=== PATIENT | male | born 1955 | race Caucasian/White ===

== ENCOUNTER 2023-04-29 05:20 | Emergency (ER) | payer OTHER ==
--- OUTSIDE RECORDS SUMMARY | 2023-04-29 05:23 | XMS REPORT | Continuity of Care Document ---
:1955 Author Organization [facility] t Address [address] [facility] [address] [place] [id number] Care Team Providers Name Role Phone Lab, [facility] Fam Pob I Attending Clinician Unavailable Katherine Morales Attending Clinician KATHERINE CLEMENTS Attending Clinician Unavailable Doctor Unassigned, [place] Attending Clinician Unavailable Payers Payer Name Policy Type Policy Number Effective Date Expiration Date S ource Problems This patient has no known problems. Allergies, Adverse Reactions, Alerts Allergy Allergy Status Severity Reaction(s) Onset Inactive Treating Comm ents Source Name Type Date Date Clinician NO KNOWN Drug Active Univers ALLERGIE Class ity of [facility] Social History Social Habit Start Date Stop Date Quantity Comments Source Sex Assigned At Uni versity [facility] Smoking Status Start Date Stop Date Source Unknown if ever [facility] Medications This patient has no known medications. Procedures This patient has no known procedures. Encounters Start End Encounter Admission Attending Care Care Encounter Source Date/Time Date/Time Type Type Clinicians Facility Department ID 2020-03-02 2020-03-02 Laboratory Lab, [facility] [id number] 13:53:26 14:13:26 Only Fam Pob I Health [id number] [place] [id number] Rajesh [id number] nal [address] 2020-03-02 2020-03-02 Laboratory Lab, [facility] Fam [place] [id number]. [id number] [facility] 13:53:26 14:13:26 Only Katherine [facility] [id number] ity [place] [id number] Walter as Professio [phone] Co dical nal [address] 2020-03-02 2020-03-02 Outpatient R CATHERINE [facility] [id number] Univers 14:00:00 14:00:00 KATHERINE ity of [facility] 2020-03-02 2020-03-02 Letter Doctor DEBRA [id number] Univers 00:00:00 00:00:00 (Out) Unassigned, MARÍA [id number] ity of [place] [facility] [id number] Walter as [phone] [address] 2020-03-02 2020-03-02 Letter Doctor DEBRA [id number] 00:00:00 00:00:00 (Out) Unassigned, MARÍA [id number] [place] [facility] [id number] Results This patient has no known results.
[2023-04-29 05:57] LABS: Absolute Lymphocytes (CBC) 1.8 K/uL (0.7-4.9); Lymphocytes % 15.3 % (15.3-44.8); MCV 91.8 fL (80-100); MPV 8.5 fL (7.6-11.3); Platelets 234 thou/uL (152-406); RBC Red Blood Cell Count 4.69 M/uL (4.33-5.43)
[2023-04-29] MEDS ORDERED: ONDANSETRON 4 MG/2 ML VIAL ONE ×2 (06:13→09:52)
[2023-04-29] MEDS ORDERED: MORPHINE 4 MG/ML SYR ONE (06:13)
[2023-04-29 06:14] LABS: Albumin 3.5 g/dL (3.4-5.0); Bilirubin Total 1.2 mg/dL (0.2-1.0); Potassium 3.8 mEq/L (3.5-5.1)
[2023-04-29] MEDS ORDERED: NA CHLORIDE 0.9% 1,000 ML ONE (07:53)
[2023-04-29] MEDS ORDERED: MORPHINE 2 MG/ML SYR ONE ×2 (08:28→09:17)
[2023-04-29] MEDS ORDERED: MAGNESIUM SULFATE 1 gm IVPB 1 GM/100 ML BAG IV ONE (09:17)
[2023-04-29 09:27] LABS: Specific Gravity 1.029 (1.005-1.030); Urine Bacteria <20 /HPF (<20); Urine Bilirubin NEGATIVE (Negative); Urine Blood 3+ (OVER) (Negative); Urine Clarity Extremely Turbid (Clear); Urine Color Dark-Brown (Yellow); Urine Glucose NEGATIVE (Negative); Urine Mucus 2+ /HPF (None Seen); Urine Protein 2+ (Negative); Urine RBC >50 /HPF (None Seen); Urine Urobilinogen Normal (Normal); Urine pH 5.5 (5.0-7.0)
[2023-04-29] MEDS ORDERED: NA CHLORIDE 0.9% 500 ML ONE (09:52)
[2023-04-29] MEDS ORDERED: FENTANYL CITR 100 MCG/2 ML ONE (10:51)
--- NOTE | 2023-04-29 11:10 | ER ---
Nurse's Notes [facility] Name: Devan Mclaughlin Age: 68 yrs Sex: Male : 1955 Arrival Date: 04/29/2023 Time: 05:20 Bed 6 Private MD: Diagnosis: Calculus of ureter Presentation: 04/29 05:40 Chief complaint: Patient states: right flank plan that started at 2 am. pt has hx of as6 kidney stones. Coronavirus screen: At this time, the client does not indicate any symptoms associated with coronavirus-19. Ebola Screen: No symptoms or risks identified at this time. Initial Sepsis Screen: Does the patient meet any 2 criteria? No. Patient's initial sepsis screen is negative. Does the patient have a suspected source of infection? No. Patient's initial sepsis screen is negative. Risk Assessment: Do you want to hurt yourself or someone else? Patient reports no desire to harm self or others. Onset of symptoms was April 29, 2023 at 02:00. 05:40 Acuity: RICHARD 3 as6 05:40 Method Of Arrival: Wheelchair as6 Historical: - Allergies: 05:40 Dilaudid; as6 - PMHx: 05:40 Atrial fibrillation; as6 - PSHx: 05:40 Lithotripsy; as6 - Immunization history:: Client reports receiving the 2nd dose of the Covid vaccine, moderna. - Social history:: Smoking status: Patient denies any tobacco usage or history of. - Family history:: not pertinent. Screenin:56 [facility] ED Fall Risk Assessment (Adult) History of falling in the last 3 months, lg3 including since admission No falls in past 3 months (0 pts). Abuse screen: Denies threats or abuse. Denies injuries from another. Nutritional screening: No deficits noted. Tuberculosis screening: No symptoms or risk factors identified. Assessment: 05:56 General: Appears in no apparent distress. uncomfortable, Behavior is calm, cooperative. lg3 Pain: Complains of pain in right flank. Neuro: No deficits noted. Ortega Agitation-Sedation Scale (RASS): 0 - Alert and Calm Level of Consciousness is awake, alert, obeys commands, Oriented to person, place, time, situation. Cardiovascular: Denies chest pain, shortness of breath, Capillary refill < 3 seconds Clubbing of nail beds is absent JVD is absent Patient's skin is warm and dry. Rhythm is atrial fibrillation. Respiratory: No deficits noted. Airway is patent Respiratory effort is even, unlabored, Respiratory pattern is regular, symmetrical. GI: Abdomen is round non-distended, Abd is soft X 4 quads Abdomen is tender to palpation in right lower quadrant Reports lower abdominal pain. : Reports cramping, inability to void, pain urinary frequency. EENT: No deficits noted. No signs and/or symptoms were reported regarding the EENT system. Derm: No deficits noted. No signs and/or symptoms reported regarding the dermatologic system. Skin is intact, is healthy with good turgor, Skin is dry, Skin is normal, Skin temperature is warm. Musculoskeletal: No deficits noted. Circulation, motion, and sensation intact. Range of motion: intact in all extremities. 07:20 Reassessment: No changes from previously documented assessment. Patient and/or family ll1 updated on plan of care and expected duration. Pain level reassessed. 08:20 Reassessment: No changes from previously documented assessment. Patient and/or family ll1 updated on plan of care and expected duration. Pain level reassessed. Patient is alert, oriented x 3, equal unlabored respirations, skin warm/dry/pink. 08:56 Reassessment: No changes from previously documented assessment. Patient and/or family ll1 updated on plan of care and expected duration. Pain level reassessed. Patient is alert, oriented x 3, equal unlabored respirations, skin warm/dry/pink. 09:27 Reassessment: Patient is alert, oriented x 3, equal unlabored respirations, skin mb9 warm/dry/pink. Patient states feeling better. Patient states symptoms have improved. 09:29 Reassessment: No changes from previously documented assessment. Dr. Terry at BS. ll1 09:49 Reassessment: No changes from previously documented assessment. Patient and/or family ll1 updated on plan of care and expected duration. Pain level reassessed. Patient is alert, oriented x 3, equal unlabored respirations, skin warm/dry/pink. 10:45 Reassessment: No changes from previously documented assessment. Patient and/or family hb updated on plan of care and expected duration. Pain level reassessed. 11:04 Reassessment: No changes from previously documented assessment. Dr. Terry at BS. ll1 Vital Signs: 05:39 BP 139 / 88; Pulse 51; Resp 18 S; Temp 98.1(TE); Pulse Ox 100% on R/A; Weight 104.33 kg as6 (R); Height 6 ft. 2 in. (R); Pain 10/10; 08:19 BP 112 / 56; Pulse 63; Resp 16; Pulse Ox 99% on R/A; mb9 08:57 BP 126 / 57; Pulse 62; Pulse Ox 100% on R/A; ll1 09:56 BP 108 / 69; Pulse 70; Resp 16; Pulse Ox 97% on R/A; mb9 11:33 BP 103 / 59; Pulse 55; Resp 16; Pulse Ox 97% on R/A; Pain 5/10; ll1 05:39 Body Mass Index 29.53 (104.33 kg, 187.96 cm) as6 05:39 Pain Scale: Adult as6 11:33 Pain Scale: Adult ll1 ED Course: 05:23 Patient arrived in ED. jj6 05:39 Inserted saline lock: 20 gauge in right antecubital area, using aseptic technique. as6 Blood collected. 05:39 Arm band placed on. as6 05:40 Wayne Addison MD is Attending Physician. rt 05:43 Triage completed. as6 05:43 Payal Blood, RN is Primary Nurse. lg3 05:56 Patient maintains SpO2 saturation greater than 95% on room air. lg3 05:56 Patient has correct armband on for positive identification. Placed in gown. Bed in low lg3 position. Call light in reach. Side rails up X 1. Client placed on continuous cardiac and pulse oximetry monitoring. NIBP monitoring applied. barrel driller on. Door closed. Noise minimized. Warm blanket given. Family accompanied patient. 05:59 CBC with Diff Sent. lg3 05:59 CMP Sent. lg3 05:59 Lipase Sent. lg3 06:02 CT Stone Protocol In Process Unspecified. EDMS 08:18 Attending Physician role handed off by Wayne Addison MD rn 08:18 Keaton Terry MD is Attending Physician. rn 08:20 Primary Nurse role handed off by Payal Blood, RN ll1 08:20 Ariana Mitchell RN is Primary Nurse. ll1 08:56 Urinalysis w/ reflexes Sent. ll1 11:34 No provider procedures requiring assistance completed. IV discontinued, intact, ll1 bleeding controlled, No redness/swelling at site. Pressure dressing applied. 11:34 Provided Education on: n/a. 1 Administered Medications: 06:20 Drug: Ondansetron IVP 4 mg Route: IVP; Site: right antecubital; lg3 07:24 Follow up: Response: No adverse reaction 1 06:20 Drug: morphine IVP or IV 4 mg Route: IVP; Infused Over: 4 mins; Site: right antecubital;lg3 07:24 Follow up: Response: No adverse reaction; Pain is decreased; RASS: Alert and Calm (0) ll1 07:45 Drug: NS 0.9% IV 1000 ml Route: IV; Rate: 1 bolus; Site: right antecubital; ll1 08:50 Follow up: Response: No adverse reaction; IV Status: Completed infusion; IV Intake: ll1 1000ml 08:19 Drug: morphine IVP or IV 2 mg Route: IVP; Infused Over: 4 mins; Site: right antecubital;mb9 09:13 Follow up: Response: No adverse reaction mb9 09:07 Drug: morphine IVP or IV 2 mg Route: IVP; Infused Over: 4 mins; Site: right antecubital;mb9 09:28 Follow up: Response: No adverse reaction 9 09:13 Drug: Magnesium Sulfate IVPB 1 grams Route: IVPB; Infused Over: 1 hrs; Site: right mb9 antecubital; 10:03 Follow up: IV Status: Completed infusion; IV Intake: 100ml 1 09:49 Drug: Ondansetron IVP 4 mg Route: IVP; Site: right antecubital; ll1 10:03 Follow up: Response: No adverse reaction; Nausea is decreased; RASS: Alert and Calm (0) 1 09:49 Drug: NS 0.9% IV 500 ml Route: IV; Rate: bolus; Site: right antecubital; ll1 10:45 Follow up: Response: No adverse reaction; IV Status: Completed infusion; IV Intake: hb 500ml 10:45 Drug: fentaNYL (PF) IVP 50 mcg Route: IVP; Site: right antecubital; hb 11:33 Follow up: Response: No adverse reaction; Pain is decreased 1 11:20 Drug: traMADol PO 25 mg Route: PO; ll1 11:33 Follow up: Response: No adverse reaction ll1 Medication: 11:34 VIS not applicable for this client. ll1 Intake: 08:50 IV: 1000ml; Total: 1000ml. ll1 10:03 IV: 100ml; Total: 1100ml. ll1 10:45 IV: 500ml; Total: 1600ml. hb Outcome: 11:10 Discharge ordered by . rn 11:34 Discharged to home via wheelchair. 1 11:34 Condition: stable 11:34 Discharge instructions given to patient, family, Instructed on discharge instructions, follow up and referral plans. no drinking with medication, no driving heavy equipment, medication usage, Demonstrated understanding of instructions, follow-up care, medications, Prescriptions given X 3. 11:35 Patient left the ED. 1 Signatures: Dispatcher [employer] EDMS Keaton Terry MD MD rn Baxter, Heather RN RN Payal Blood RN RN [email or web address] Ariana Mitchell RN RN ll1 Sudha Arellano6 Sandoval Rubio RN RN as6 Obdulia Hogan RN RN mb9 Wayne Addison MD MD rt Corrections: (The following items were deleted from the chart) 05:45 05:39 BP 139 / 88; Pulse 230bpm; Resp 18bpm; Spontaneous; Pulse Ox 100% RA; Temp 98.1F as6 Temporal; 104.33 kg Reported; Height 6 ft. 2 in. Reported; BMI: 29.5; Pain 05/29, Adult; as6
--- NOTE | 2023-04-29 11:10 | EDPHYS ---
Physician Documentation [facility] Name: Devan Mclaughlin Age: 68 yrs Sex: Male : 1955 Arrival Date: 04/29/2023 Time: 05:20 Bed 6 Private MD: ED Physician Keaton Terry HPI: 04/29 06:43 This 68 yrs old Male presents to ER via Wheelchair with complaints of Possible Kidney rt Stone. 06:43 Patient presents to the ED with right flank pain radiating to the suprapubic region rt with associated hematuria. This is consistent with prior episodes of kidney stones. The patient denies other acute complaints at this time with nausea. Symptoms are moderate severity, aching nature, no other aggravating or alleviating factors.. Historical: - Allergies: 05:40 Dilaudid; as6 - PMHx: 05:40 Atrial fibrillation; as6 - PSHx: 05:40 Lithotripsy; as6 - Immunization history:: Client reports receiving the 2nd dose of the Covid vaccine, moderna. - Social history:: Smoking status: Patient denies any tobacco usage or history of. - Family history:: not pertinent. ROS: 06:43 Constitutional: Negative for fever, chills, and weight loss, Cardiovascular: Negative rt for chest pain, palpitations, and edema, Respiratory: Negative for shortness of breath, cough, wheezing, and pleuritic chest pain, MS/Extremity: Negative for injury and deformity, Skin: Negative for injury, rash, and discoloration, Neuro: Negative for headache, weakness, numbness, tingling, and seizure, Psych: Negative for depression, anxiety, suicide ideation, homicidal ideation, and hallucinations. 06:43 Back: Positive for flank pain, Negative for injury or acute deformity. 06:43 : Positive for hematuria. Exam: 06:43 Constitutional: This is a well developed, well nourished patient who is awake, alert, rt and in no acute distress. Chest/axilla: Normal chest wall appearance and motion. Nontender with no deformity. No lesions are appreciated. Cardiovascular: Regular rate and rhythm with a normal S1 and S2. No gallops, murmurs, or rubs. Normal PMI, no JVD. No pulse deficits. Respiratory: Lungs have equal breath sounds bilaterally, clear to auscultation and percussion. No rales, rhonchi or wheezes noted. No increased work of breathing, no retractions or nasal flaring. Abdomen/GI: Soft, non-tender, with normal bowel sounds. No distension or tympany. No guarding or rebound. No evidence of tenderness throughout. Skin: Warm, dry with normal turgor. Normal color with no rashes, no lesions, and no evidence of cellulitis. MS/ Extremity: Pulses equal, no cyanosis. Neurovascular intact. Full, normal range of motion. Neuro: Awake and alert, GCS 15, oriented to person, place, time, and situation. Cranial nerves II-XII grossly intact. Motor strength 5/5 in all extremities. Sensory grossly intact. Cerebellar exam normal. Normal gait. Psych: Awake, alert, with orientation to person, place and time. Behavior, mood, and affect are within normal limits. Vital Signs: 05:39 BP 139 / 88; Pulse 51; Resp 18 S; Temp 98.1(TE); Pulse Ox 100% on R/A; Weight 104.33 kg as6 (R); Height 6 ft. 2 in. (R); Pain 10/10; 08:19 BP 112 / 56; Pulse 63; Resp 16; Pulse Ox 99% on R/A; mb9 08:57 BP 126 / 57; Pulse 62; Pulse Ox 100% on R/A; ll1 09:56 BP 108 / 69; Pulse 70; Resp 16; Pulse Ox 97% on R/A; mb9 11:33 BP 103 / 59; Pulse 55; Resp 16; Pulse Ox 97% on R/A; Pain 5/10; ll1 05:39 Body Mass Index 29.53 (104.33 kg, 187.96 cm) as6 05:39 Pain Scale: Adult as6 11:33 Pain Scale: Adult ll1 MDM: 05:40 Patient medically screened. rt 08:18 ED course: Signed out to me by Dr. Adidson, pending urinalysis. Signout was that rn patient with a small kidney stone and pain is controlled, urine is pending to rule out infection. Anticipates patient will be discharged home.. 11:09 Differential Diagnosis Kidney stone, UTI. Data reviewed: vital signs, nurses notes, cath lab nurse test result(s), radiologic studies, CT scan, and as a result, I will discharge patient. Counseling: I had a detailed discussion with the patient and/or guardian regarding the historical points, exam findings, and any diagnostic results supporting the discharge/admit diagnosis, lab results, radiology results, the need for outpatient follow up, to return to the emergency department if symptoms worsen or persist or if there are any questions or concerns that arise at home. Response to treatment: the patient's symptoms have markedly improved after treatment, and as a result, I will discharge patient. 11:09 Special discussion: I discussed with the patient/guardian in detail that at this point rn there is no indication for admission to the hospital. It is understood, however, that if the symptoms persist or worsen the patient needs to return immediately for re-evaluation. Based on the history and exam findings, there is no indication for further emergent testing or inpatient evaluation. I discussed with the patient/guardian the need to see the primary care provider for further evaluation of the symptoms. I discussed with the patient/guardian the need to see the urologist for further evaluation of the symptoms. 04/29 05:48 Order name: CBC with Diff; Complete Time: 06:17 3 04/29 05:48 Order name: CMP; Complete Time: 06:17 3 04/29 05:48 Order name: Lipase; Complete Time: 06:17 3 04/29 05:48 Order name: Urinalysis w/ reflexes; Complete Time: 09:27 3 04/29 05:43 Order name: CT Stone Protocol 3 04/29 05:48 Order name: IV Saline Lock; Complete Time: 05:59 3 04/29 05:48 Order name: Labs collected and sent; Complete Time: 05:59 lg3 Administered Medications: 06:20 Drug: Ondansetron IVP 4 mg Route: IVP; Site: right antecubital; lg3 07:24 Follow up: Response: No adverse reaction ll1 06:20 Drug: morphine IVP or IV 4 mg Route: IVP; Infused Over: 4 mins; Site: right antecubital;lg3 07:24 Follow up: Response: No adverse reaction; Pain is decreased; RASS: Alert and Calm (0) ll1 07:45 Drug: NS 0.9% IV 1000 ml Route: IV; Rate: 1 bolus; Site: right antecubital; ll1 08:50 Follow up: Response: No adverse reaction; IV Status: Completed infusion; IV Intake: ll1 1000ml 08:19 Drug: morphine IVP or IV 2 mg Route: IVP; Infused Over: 4 mins; Site: right antecubital;mb9 09:13 Follow up: Response: No adverse reaction mb9 09:07 Drug: morphine IVP or IV 2 mg Route: IVP; Infused Over: 4 mins; Site: right antecubital;mb9 09:28 Follow up: Response: No adverse reaction mb9 09:13 Drug: Magnesium Sulfate IVPB 1 grams Route: IVPB; Infused Over: 1 hrs; Site: right mb9 antecubital; 10:03 Follow up: IV Status: Completed infusion; IV Intake: 100ml ll1 09:49 Drug: Ondansetron IVP 4 mg Route: IVP; Site: right antecubital; ll1 10:03 Follow up: Response: No adverse reaction; Nausea is decreased; RASS: Alert and Calm (0) ll1 09:49 Drug: NS 0.9% IV 500 ml Route: IV; Rate: bolus; Site: right antecubital; ll1 10:45 Follow up: Response: No adverse reaction; IV Status: Completed infusion; IV Intake: hb 500ml 10:45 Drug: fentaNYL (PF) IVP 50 mcg Route: IVP; Site: right antecubital; hb 11:33 Follow up: Response: No adverse reaction; Pain is decreased ll1 11:20 Drug: traMADol PO 25 mg Route: PO; ll1 11:33 Follow up: Response: No adverse reaction ll1 Disposition Summary: 04/29/23 11:10 Discharge Ordered Location: Home rn Problem: new rn Symptoms: have improved rn Condition: Stable rn Diagnosis - Calculus of ureter rn Followup: rn - With: Private Physician - When: As needed - Reason: Recheck today's complaints, Re-evaluation by your physician Discharge Instructions: - Discharge Summary Sheet rn - Kidney Stones rn - Renal Colic rn - Dietary Guidelines to Help Prevent Kidney Stones rn Forms: - Medication Reconciliation Form rn - Thank You Letter rn - Antibiotic erisa attorney - Prescription Opioid Use rn - Patient Portal Instructions rn - Leadership Thank You Letter rn Prescriptions: - Flomax 0.4 mg Oral capsule - take 1 capsule by ORAL route daily As needed; 5 capsule; Refills: 0, Product rn Selection Permitted - ondansetron 4 mg Oral Tablet,disintegrating - take 1 tablet by ORAL route every 8 hours As needed; 12 tablet; Refills: 0, rn Product Selection Permitted - Tramadol 50 mg Oral Tablet - take 1 tablet by ORAL route every 8 hours as needed; 12 tablet; Refills: 0, rn Product Selection Permitted Signatures: Dispatcher [employer] EDKeaton Juan MD MD rn Baxter, Heather RN RN Payal Blood RN RN lg3 Ariana Mitchell RN RN ll1 Sandoval Rubio RN RN as6 Obdulia Hogan RN RN mb9 Wayne Addison MD MD rt
[2023-04-29] MEDS ORDERED: TRAMADOL HCL 50 MG TAB ONE (11:29)
[2023-04-29 11:50] VITALS: TEMP 98.1
[2023-04-29 12:03] VITALS: O2SAT 97
[2023-04-29 12:04] VITALS: BP 103/59
--- NOTE | 2023-04-30 10:09 | RAD REPORT ---
EXAM DESCRIPTION: CT - Stone Protocol - 04/29/2023 6:54 am CLINICAL HISTORY: The patient is 68 years old and is Male; FLANK PAIN TECHNIQUE: Axial computed tomography images of the abdomen and pelvis without intravenous contrast. Sagittal and coronal reformatted images were created and reviewed. This CT exam was performed usi ng one or more of the following dose reduction techniques: automated exposure control, adjustment o f the mA and/or kV according to patient size, and/or use of iterative reconstruction technique. COMPARISON: No relevant prior studies available. FINDINGS: Lung bases: Unremarkable. No mass. No consolidation. ABDOMEN: Liver: Unremarkable. Gallbladder and bile ducts: Unremarkable. No calcified stones. No ductal dilation. Pancreas: Unremarkable. No ductal dilation. Spleen: Unremarkable. No splenomegaly. Adrenals: Unremarkable. No mass. Kidneys and ureters: 3 mm stone in the upper right ureter. Mild right hydroureteronephrosis and p erinephric/periureteral stranding. Nonobstructing calcification in the kidneys. Stomach and bowel: Colonic diverticulosis. No obstruction. No mucosal thickening. PELVIS: Appendix: The appendix is normal. Bladder: Unremarkable. Reproductive: Calcification in the prostate. ABDOMEN and PELVIS: Intraperitoneal space: Unremarkable. No free air. No significant fluid collection. Bones/joints: No acute fracture. No dislocation. Soft tissues: Unremarkable. Vasculature: Unremarkable. No abdominal aortic aneurysm. Lymph nodes: Unremarkable. No enlarged lymph nodes. IMPRESSION: 3 mm stone in the upper right ureter. Mild right hydroureteronephrosis and perinephric/p eriureteral stranding. Electronically signed by: Js Mccray MD 04/29/2023 6:46 AM CDT Due to temporary technical issues with the PACS/Fluency reporting system, reports are being signed by the in house radiologist without review as a courtesy to ensure prompt reporting. The interpreting r adiologist is fully responsible for the content of the report.
== END 2023-04-29 11:35 | disposition home or self-care (01) ==
LOC: ER 05:20
DX: N20.1 Calculus of ureter (principal); I48.91 Unspecified atrial fibrillation; Z88.8 Allergy status to other drugs, medicaments and biological substances
CPT/HCPCS: 96365; 96361; 85025; 81001; 36415; 83690; 80053; 76377; 74176; 96375; 99285; J3475; J3010; J2270 ×2; J2405 ×2; J7040; J7030

== ENCOUNTER → 2023-09-08 | Emergency (ER) | payer OTHER ==
[~2023-09-08] MED LIST: KETOROLAC 30 MG/ML INJ ONE; MORPHINE 4 MG/ML SYR ONE; NA CHLORIDE 0.9% 1,000 ML ONE; ONDANSETRON 4 MG/2 ML VIAL ONE
--- OUTSIDE RECORDS SUMMARY | 2023-09-08 04:57 | XMS REPORT | Continuity of Care Document ---
Author Name Unknown Address [address] [facility] [address] [place] [address] [facility] Address [address] [facility]. [address] [place] [address] Care Team Providers Care Business Operations Director Name Role Phone Pcp, Patient Does Not Have A Primary Care Physic bradley Doctor Unassigned, [place] Attending Clinician U navsalinaable Lab, Adc Fam Pob I Attending Clinician Unavailab Katherine Osborne Attending Clinician KATHERINE ALEXANDER Attending Clinician Unavailable Payers Payer Name Policy Type Policy Number Effective Date Expirati on Date Source Allergies, Adverse Reactions, Alerts Allergy Name Allergy Type Status Severity Reaction(s) Onset Date Inactive Date Treating Clinician Comments Source NO KNOWN ALLERGIE S Drug Class Active [facility] Social History Social Habit Start Date Stop Date Quantity Comments Source Sexual orientation U [facility] Sex Assigned At 1955 00:00:00 1955 00:00:00 [facility] Smoking Status Start Date Stop Date Source Tobacco smoking consumption unknown [facility] Encounters Start Date/Time End Date/Time Encounter Type Admission Type Attending Clinicians Care Facility Care Department Encounter ID Source 2020-03-04 00:00:00 2020-03-04 00:00:00 Patient Secure Msg Doctor Unassigned, [place] [facility] ASSISTANT [facility] [id number] [facility] 2020-03-02 13:53:26 2020-03-02 14:13:26 Laboratory Only Lab, Adc Fam Pob I [facility] [address] 1.114 [id number] 2020-03-02 13:53:26 2020-03-02 14:13:26 Laboratory Only Lab, [facility] Fam Pob I Katherine Alexander [facility] Office [address] One 1.114 [id number] [facility] 2020-03-02 14:00:00 2020-03-02 14:00:00 Outpatient KATHERINE LEAL [facility] [id number] [facility] 2020-03-02 00:00:00 2020-03-02 00:00:00 Letter (Out) Doctor Unassigned, [place] [facility] [id number] 2020-03-02 00:00:00 2020-03-02 00:00:00 Letter (Out) Doctor Unassigned, [place] [facility] [id number] [facility]
[2023-09-08 05:34] LABS: Absolute Lymphocytes (CBC) 1.2 K/uL (0.7-4.9); Hematocrit 42.5 % (39.6-49.0); Lymphocytes % 21.1 % (15.3-44.8); MCV 93.9 fL (80-100); MPV 8.3 fL (7.6-11.3); Platelets 186 thou/uL (152-406); RBC Red Blood Cell Count 4.53 M/uL (4.33-5.43)
[2023-09-08 05:48] LABS: Albumin 3.6 g/dL (3.4-5.0); Bilirubin Total 2.2 mg/dL (0.2-1.0); Potassium 4.2 mEq/L (3.5-5.1)
[2023-09-08 06:25] LABS: Specific Gravity 1.026 (1.005-1.030); Urine Bacteria <20 /HPF (<20); Urine Bilirubin NEGATIVE (Negative); Urine Blood 3+ (OVER) (Negative); Urine Clarity Extremely Turbid (Clear); Urine Color Dark-Brown (Yellow); Urine Glucose NEGATIVE (Negative); Urine Mucus 4+ /HPF (None Seen); Urine Protein 2+ (Negative); Urine RBC >50 /HPF (None Seen); Urine Urobilinogen Normal (Normal); Urine pH 5.5 (5.0-7.0)
--- NOTE | 2023-09-08 06:52 | ER ---
Nurse's Notes [facility] Name: Devan Mclaughlin Age: 68 yrs Sex: Male : 1955 Arrival Date: 09/08/2023 Time: 04:54 Bed 5 Private MD: Diagnosis: Ureterolithiasis, flank pain right, kidney stone Presentation: 09/08 05:03 Chief complaint: Patient states: sudden onset right sided flank pain X1 hour. HX of lg3 kidney stones with lithotripsy. Coronavirus screen: Vaccine status: Patient reports receiving the 2nd dose of the covid vaccine. Client denies travel out of the [place] in the last 14 days. At this time, the client does not indicate any symptoms associated with coronavirus-19. Ebola Screen: No symptoms or risks identified at this time. Initial Sepsis Screen: Does the patient meet any 2 criteria? No. Patient's initial sepsis screen is negative. Does the patient have a suspected source of infection? No. Patient's initial sepsis screen is negative. Risk Assessment: Do you want to hurt yourself or someone else? Patient reports no desire to harm self or others. Onset of symptoms was September 08, 2023. 05:03 Method Of Arrival: Ambulatory lg3 05:03 Acuity: RICHARD 3 lg3 Triage Assessment: 05:07 General: Appears in no apparent distress. uncomfortable, Behavior is calm, cooperative. lg3 Pain: Complains of pain in right flank. EENT: No deficits noted. No signs and/or symptoms were reported regarding the EENT system. Neuro: No deficits noted. Ortega Agitation-Sedation Scale (RASS): 0 - Alert and Calm Level of Consciousness is awake, alert, obeys commands, Oriented to person, place, time, situation. Cardiovascular: No deficits noted. Denies chest pain, shortness of breath, Capillary refill < 3 seconds Clubbing of nail beds is absent JVD is absent Patient's skin is warm and dry. Respiratory: No deficits noted. Airway is patent Respiratory effort is even, unlabored, Respiratory pattern is regular, symmetrical. GI: No deficits noted. No signs and/or symptoms were reported involving the gastrointestinal system. Abdomen is round non-distended. : No deficits noted. Denies burning with urination, inability to void, pain. Derm: No deficits noted. No signs and/or symptoms reported regarding the dermatologic system. Skin is intact, is healthy with good turgor, Skin is dry, Skin is normal, Skin temperature is warm. Musculoskeletal: No deficits noted. Circulation, motion, and sensation intact. Range of motion: intact in all extremities. Historical: - Allergies: 05:07 Dilaudid; lg3 - Home Meds: 05:07 Xarelto oral [Active]; lg3 - PMHx: 05:07 Atrial fibrillation; lg3 - PSHx: 05:07 Lithotripsy; lg3 - Immunization history:: Adult Immunizations up to date, Client reports receiving the 2nd dose of the Covid vaccine, Flu vaccine is not up to date. - Social history:: Smoking status: Patient denies any tobacco usage or history of. Patient/guardian denies using alcohol. Screenin:16 [facility] ED Fall Risk Assessment (Adult) History of falling in the last 3 months, tm6 including since admission No falls in past 3 months (0 pts). Abuse screen: Denies threats or abuse. Denies injuries from another. Nutritional screening: No deficits noted. Tuberculosis screening: No symptoms or risk factors identified. Assessment: 05:50 General: Appears in no apparent distress. Behavior is calm, cooperative. Pain: tm6 Complains of pain in right flank Pain currently is 5 out of 10 on a pain scale. Neuro: Level of Consciousness is awake, alert, obeys commands, Oriented to person, place, time, situation. Cardiovascular: Capillary refill < 3 seconds Patient's skin is warm and dry. Respiratory: Airway is patent Respiratory effort is even, unlabored, Respiratory pattern is regular, symmetrical. GI: Abdomen is flat, non-distended, Bowel sounds present X 4 quads. Abd is soft and non tender. : Urine is brown in color Reports pain flank(s). EENT: No signs and/or symptoms were reported regarding the EENT system. Derm: No signs and/or symptoms reported regarding the dermatologic system. Musculoskeletal: No signs and/or symptoms reported regarding the musculoskeletal system. 07:02 Reassessment: Patient appears in no apparent distress at this time. Patient and/or tm6 family updated on plan of care and expected duration. Pain level reassessed. Patient is alert, oriented x 3, equal unlabored respirations, skin warm/dry/pink. Vital Signs: 05:03 BP 102 / 55; Pulse 37; Resp 17 S; Pulse Ox 100% on R/A; Weight 92.53 kg (R); Height 6 lg3 ft. 2 in. (R); Pain 5/10; 05:50 BP 101 / 90; Pulse 40; Pulse Ox 100% on R/A; Pain 5/10; tm6 06:15 Pain 7/10; tm6 06:28 BP 107 / 64; Pulse 43; Pulse Ox 100% on R/A; Pain 3/10; tm6 06:44 BP 105 / 64; Pulse 75; Pulse Ox 100% on R/A; tm6 05:03 Body Mass Index 26.19 (92.53 kg, 187.96 cm) lg3 05:03 Pain Scale: Adult lg3 05:50 Pain Scale: Adult tm6 06:15 Pain Scale: Adult tm6 06:28 Pain Scale: Adult tm6 ED Course: 04:59 Patient arrived in ED. jj6 05:06 Eufemia Wharton MD is Attending Physician. sp3 05:07 Triage completed. lg3 05:07 Arm band placed on left wrist. lg3 05:29 No provider procedures requiring assistance completed. Inserted saline lock: 20 gauge tm6 in right antecubital area, using aseptic technique. 05:38 Stone Protocol In Process Unspecified. EDMS 05:50 Patient has correct armband on for positive identification. Bed in low position. Call tm6 light in reach. Side rails up X 1. Provided Education on: plan of care. Client placed on continuous cardiac and pulse oximetry monitoring. NIBP monitoring applied. Door closed. Noise minimized. Warm blanket given. 05:50 Urinalysis w/ reflexes Sent. tm6 06:00 Zenaida Rutledge, RN is Primary Nurse. tm6 07:03 IV discontinued, intact, bleeding controlled, No redness/swelling at site. Pressure tm6 dressing applied. Administered Medications: 05:50 Drug: NS 0.9% IV 1000 ml IV at 1 bolus Per protocol; 1000 mL bolus Route: IV; Rate: 1 tm6 bolus; Site: right antecubital; 06:34 Follow up: Response: No adverse reaction; IV Intake: 1000ml tm6 05:50 Drug: Ketorolac IVP 15 mg IVP once Route: IVP; Site: right antecubital; tm6 06:35 Follow up: Response: Pain is unchanged, physician notified tm6 05:50 Drug: Ondansetron IVP 4 mg IVP once; over 2 minutes Route: IVP; Site: right antecubital;tm6 06:35 Follow up: Response: Marked relief of symptoms tm6 06:20 Drug: morphine IVP or IV 4 mg IVP once over 4 mins Route: IVP; Infused Over: 4 mins; tm6 Site: right antecubital; 06:35 Follow up: Response: Marked relief of symptoms tm6 Medication: 05:16 VIS not applicable for this client. tm6 Intake: 06:34 IV: 1000ml; Total: 1000ml. tm6 Outcome: 06:52 Discharge ordered by . sp3 07:02 Discharged to home ambulatory, with family, tm6 07:02 Condition: stable 07:02 Discharge instructions given to patient, family, Instructed on discharge instructions, follow up and referral plans. medication usage, Demonstrated understanding of instructions, follow-up care, medications, Prescriptions given X 3, 07:03 Patient left the ED. tm6 Signatures: Dispatcher [employer] EDMS Payal Torres, RN RN lg3 Eufemia Wharton MD MD sp3 Sudha Arellano6 Zenaida Rutledge RN RN tm6
--- NOTE | 2023-09-08 06:52 | EDPHYS ---
Physician Documentation [facility] Name: Devan Mclaughlin Age: 68 yrs Sex: Male : 1955 Arrival Date: 09/08/2023 Time: 04:54 Bed 5 Private MD: ED Physician Eufemia Wharton HPI: 09/08 05:28 This 68 yrs old Male presents to ER via Ambulatory with complaints of Flank pain right sp3 side. 05:28 68-year-old male with history of atrial fibrillation on Xarelto with a baseline pulse sp3 rate of 30-50 now presents to the ED with chief complaint right-sided flank pain with a recent kidney stone measuring 3 mm in the right proximal ureter which she had passed. Patient states this episode he came in earlier than last time and is still on the right side. He denies any other symptoms including fever, dysuria, urinary frequency, intra-abdominal pain, chest pain, shortness of breath, upper back pain, syncope, near syncope, bleeding, or any other signs or symptoms on ROS at this time.. Historical: - Allergies: 05:07 Dilaudid; lg3 - Home Meds: 05:07 Xarelto oral [Active]; lg3 - PMHx: 05:07 Atrial fibrillation; lg3 - PSHx: 05:07 Lithotripsy; lg3 - Immunization history:: Adult Immunizations up to date, Client reports receiving the 2nd dose of the Covid vaccine, Flu vaccine is not up to date. - Social history:: Smoking status: Patient denies any tobacco usage or history of. Patient/guardian denies using alcohol. ROS: 05:31 Constitutional: Negative for fever, chills, and weight loss, Eyes: Negative for injury, sp3 pain, redness, and discharge, Neck: Negative for injury, pain, and swelling, Cardiovascular: Negative for chest pain, palpitations, and edema, Respiratory: Negative for shortness of breath, cough, wheezing, and pleuritic chest pain, Abdomen/GI: Negative for abdominal pain, nausea, vomiting, diarrhea, and constipation, MS/Extremity: Negative for injury and deformity, Skin: Negative for injury, rash, and discoloration, Neuro: Negative for headache, weakness, numbness, tingling, and seizure, Psych: Negative for depression, anxiety, suicide ideation, homicidal ideation, and hallucinations, Allergy/Immunology: Negative for hives, rash, and allergies, Endocrine: Negative for neck swelling, polydipsia, polyuria, polyphagia, and marked weight changes, 05:31 All other systems are negative, Exam: 05:31 Constitutional: This is a well developed, well nourished patient who is awake, alert, sp3 and in no acute distress. Head/Face: Normocephalic, atraumatic. Neck: Trachea midline, no thyromegaly or masses palpated, and no cervical lymphadenopathy. Supple, full range of motion without nuchal rigidity, or vertebral point tenderness. No Meningismus. Chest/axilla: Normal chest wall appearance and motion. Nontender with no deformity. No lesions are appreciated. Cardiovascular: Regular rate and rhythm with a normal S1 and S2. No gallops, murmurs, or rubs. Normal PMI, no JVD. No pulse deficits. Respiratory: Lungs have equal breath sounds bilaterally, clear to auscultation and percussion. No rales, rhonchi or wheezes noted. No increased work of breathing, no retractions or nasal flaring. Abdomen/GI: Soft, non-tender, with normal bowel sounds. No distension or tympany. No guarding or rebound. No evidence of tenderness throughout. Skin: Warm, dry with normal turgor. Normal color with no rashes, no lesions, and no evidence of cellulitis. MS/ Extremity: Pulses equal, no cyanosis. Neurovascular intact. Full, normal range of motion. Neuro: Awake and alert, GCS 15, oriented to person, place, time, and situation. Cranial nerves II-XII grossly intact. Motor strength 5/5 in all extremities. Sensory grossly intact. Cerebellar exam normal. Normal gait. 05:31 Abdomen/GI: Right CVA tenderness., Vital Signs: 05:03 BP 102 / 55; Pulse 37; Resp 17 S; Pulse Ox 100% on R/A; Weight 92.53 kg (R); Height 6 lg3 ft. 2 in. (R); Pain 5/10; 05:50 BP 101 / 90; Pulse 40; Pulse Ox 100% on R/A; Pain 5/10; tm6 06:15 Pain 7/10; tm6 06:28 BP 107 / 64; Pulse 43; Pulse Ox 100% on R/A; Pain 3/10; tm6 06:44 BP 105 / 64; Pulse 75; Pulse Ox 100% on R/A; tm6 05:03 Body Mass Index 26.19 (92.53 kg, 187.96 cm) lg3 05:03 Pain Scale: Adult lg3 05:50 Pain Scale: Adult tm6 06:15 Pain Scale: Adult tm6 06:28 Pain Scale: Adult tm6 MDM: 05:13 Patient medically screened. sp3 05:31 Data reviewed: vital signs, nurses notes, lab test result(s), radiologic studies. ED sp3 course: 68-year-old male with history of kidney stone and atrial fibrillation now presents with right-sided flank pain differential diagnosis includes ureterolithiasis, UTI/pyelonephritis spectrum, infected kidney stone, GI pathology, musculoskeletal pain, among others. I am not highly suspicious for vascular pathology including aortic aneurysm, dissection, sepsis, shock or any other critical process at this time. Workup will include laboratory values, urine analysis, CT scan of the abdomen pelvis and a kidney stone protocol, and ketorolac IV and further pain medications as needed and/or indicated. Disposition pending workup and patient course.. 06:51 ED course: CT demonstrates 2 mm kidney stone in the right proximal ureter. No signs of sp3 infection and remainder of labs are normal. We will send patient home on Flomax, ondansetron and diclofenac and follow-up with urology.. 09/08 05:17 Order name: CBC with Diff; Complete Time: 06:34 sp3 09/08 05:17 Order name: CMP; Complete Time: 06:34 sp3 09/08 05:17 Order name: Lipase; Complete Time: 06:34 sp3 09/08 05:17 Order name: Urinalysis w/ reflexes; Complete Time: 06:34 sp3 09/08 05:17 Order name: CT Abd/Pelvis - Without Contrast sp3 09/08 05:20 Order name: Stone Protocol EDCA 09/08 05:17 Order name: IV Saline Lock; Complete Time: 05:29 sp3 09/08 05:17 Order name: Labs collected and sent; Complete Time: 05:29 sp3 Administered Medications: 05:50 Drug: NS 0.9% IV 1000 ml IV at 1 bolus Per protocol; 1000 mL bolus Route: IV; Rate: 1 tm6 bolus; Site: right antecubital; 06:34 Follow up: Response: No adverse reaction; IV Intake: 1000ml tm6 05:50 Drug: Ketorolac IVP 15 mg IVP once Route: IVP; Site: right antecubital; tm6 06:35 Follow up: Response: Pain is unchanged, physician notified tm6 05:50 Drug: Ondansetron IVP 4 mg IVP once; over 2 minutes Route: IVP; Site: right antecubital;tm6 06:35 Follow up: Response: Marked relief of symptoms tm6 06:20 Drug: morphine IVP or IV 4 mg IVP once over 4 mins Route: IVP; Infused Over: 4 mins; tm6 Site: right antecubital; 06:35 Follow up: Response: Marked relief of symptoms tm6 Disposition Summary: 09/08/23 06:52 Discharge Ordered Notes: Location: Home sp3 Condition: Stable sp3 Diagnosis - Ureterolithiasis, flank pain right, kidney stone sp3 Followup: sp3 - With: Private Physician - When: Upon discharge from the Emergency Department - Reason: Continuance of care Discharge Instructions: - Discharge Summary Sheet sp3 - Kidney Stones sp3 - Dietary Guidelines to Help Prevent Kidney Stones sp3 Forms: - Medication Reconciliation Form sp3 - Thank You Letter sp3 - Antibiotic Education sp3 - Prescription Opioid Use sp3 - Patient Portal Instructions sp3 - Leadership Thank You Letter sp3 Prescriptions: - tamsulosin 0.4 mg Oral capsule - take 1 capsule ORAL route every 24 hours for 5 days; 5 capsule; Refills: 0, sp3 Product Selection Permitted - Diclofenac Sodium 75 mg Oral Tablet Sustained Release - take 1 tablet ORAL route 2 times per day; 30 tablet; Refills: 0, Product sp3 Selection Permitted - ondansetron 8 mg Oral Tablet,disintegrating - take 1 tablet ORAL route every 12 hours; 15 tablet; Refills: 0, Product sp3 Selection Permitted Signatures: Dispatcher [employer] Payal Guevara RN RN lg3 Eufemia Wharton MD MD sp3 Zenaida Rutledge RN RN tm6
[2023-09-08 10:40] VITALS: O2SAT 100
[2023-09-08 10:55] VITALS: BP 105/64
--- NOTE | 2023-09-09 18:48 | RAD REPORT ---
EXAM DESCRIPTION: CT - Stone Protocol - 09/08/2023 6:50 am CLINICAL HISTORY: 68 years Male; right flank pain; NO CONTRAST Bed Name: 5 TECHNIQUE: CT of the abdomen and pelvis without contrast. All CT scans at this facility use dose modulation, iterative reconstruction, and/or weight based dosi ng when appropriate to reduce radiation dose to as low as reasonably achievable. COMPARISON: CT abdomen pelvis 04/29/2023 FINDINGS: Lower thorax: Lung bases are clear Abdomen: Stomach: Within normal limits Liver: No focal lesions. No intrahepatic ductal distention. Gallbladder: Nondistended Pancreas: Within normal limits Spleen: Within normal limits Right kidney: Mild hydronephrosis. Proximal ureteral stone measuring 2 mm. Renal stone measuring 10 m m. Indeterminate mid pole exophytic hypodensity measuring 1.5 cm (coronal image 44) Left kidney: No hydronephrosis. Multiple renal stones. Adrenal glands: Within normal limits Vascular structures: Atherosclerosis of the abdominal aorta and major branches. Lymph nodes: No lymphadenopathy by size criteria Pelvis: Small bowel: No significant distention. Appendix: Within normal limits Colon: No distention or acute pericolonic edema. Colonic diverticulosis. Peritoneum: No free intraperitoneal fluid or air. Bones: No acute bone findings. Bladder: Under distended, limiting evaluation. Reproductive organs: No acute findings. Note that evaluation of the bowel and solid organs is somewhat limited due to lack of intravenous and oral contrast. IMPRESSION: 1. Mild right-sided hydronephrosis with a 2 mm stone in the proximal right ureter. 2. Bilateral nephrolithiasis. 3. Indeterminate mid pole exophytic hypodensity measuring 1.5 cm. Recommend nonemergent renal ultra sound for further evaluation. 4. Colonic diverticulosis without diverticulitis. Electronically signed by: Maureen Orellana MD 09/08/2023 06:23 AM API DEVELOPER Due to temporary technical issues with the PACS/Fluency reporting system, reports are being signed by the in house radiologists without review as a courtesy to insure prompt reporting. The interpreting radiologist is fully responsible for the content of the report.
== END ==
LOC: ER 04:54
DX: N20.1 Calculus of ureter (principal); R10.9 Unspecified abdominal pain; N20.0 Calculus of kidney; I48.91 Unspecified atrial fibrillation; Z88.8 Allergy status to other drugs, medicaments and biological substances
CPT/HCPCS: 85025; 81001; 36415; 83690; 80053; 76377; 74176; 96375; 96374; 99284; J2405; J7030

== ENCOUNTER 2024-06-06 07:21 | Emergency (ER) | payer OTHER ==
--- OUTSIDE RECORDS SUMMARY | 2024-06-06 07:24 | XMS REPORT | Continuity of Care Document ---
Author Name Unknown Address [address] [facility] [address] [place] [address] [facility] Address [address] [facility] [place] [address] Care Team Providers Care Outside Barrel Lathe Operator Name Role Phone Pcp, Patient Does Not Have A Primary Care Physic bradley Doctor Unassigned, [place] Attending Clinician U navsalinaable Lab, Adc Fam Pob I Attending Clinician Unavailab Katherine Osborne Attending Clinician KATHERINE ALEXANDER Attending Clinician Unavailable Payers Payer Name Policy Type Policy Number Effective Date Expirati on Date Source Allergies, Adverse Reactions, Alerts Allergy Name Allergy Type Status Severity Reaction(s) Onset Date Inactive Date Treating Clinician Comments Source NO KNOWN ALLERGIE S Drug Class Active [facility] Social History Social Habit Start Date Stop Date Quantity Comments Source Sexual orientation U [facility] Sex Assigned At 1955 00:00:00 1955 00:00:00 [facility] Smoking Status Start Date Stop Date Source Tobacco smoking consumption unknown [facility] Encounters Start Date/Time End Date/Time Encounter Type Admission Type Attending Clinicians Care Facility Care Department Encounter ID Source 2020-03-04 00:00:00 2020-03-04 00:00:00 Patient Secure Msg Doctor Unassigned, [place] [facility] SLOT MACHINE FLOOR PERSON [facility] [id number] [facility] 2020-03-02 13:53:26 2020-03-02 14:13:26 Laboratory Only Lab, Adc Fam Pob I [facility] Office [address] One 1.114 [id number] 2020-03-02 13:53:26 2020-03-02 14:13:26 Laboratory Only Lab, [facility] Fam Pob I Katherine Alexander [facility] Office [address] One 1.114 [id number] [id number] [facility] 2020-03-02 14:00:00 2020-03-02 14:00:00 Outpatient KATHERINE LEAL [facility] [id number] [facility] 2020-03-02 00:00:00 2020-03-02 00:00:00 Letter (Out) Doctor Unassigned, [place] [facility] [id number] 2020-03-02 00:00:00 2020-03-02 00:00:00 Letter (Out) Doctor Unassigned, [place] [facility] [id number] [id number] [id number] [facility]
[2024-06-06] MEDS ORDERED: CEFTRIAXONE 1000 MG/VIAL ONE (08:16)
[2024-06-06] MEDS ORDERED: NA CHLORIDE 0.9% 1,000 ML ONE (08:16)
[2024-06-06] MEDS ORDERED: TAMSULOSIN 0.4 MG SR CAP ONE (08:16)
[2024-06-06 08:17] LABS: Specific Gravity < 1.005 (1.005-1.030); Sqamous Epithelial None Seen /HPF (None Seen); Urine Bacteria None Seen /HPF (<20); Urine Bilirubin NEGATIVE (Negative); Urine Blood 3+ (OVER) (Negative); Urine Clarity Turbid (Clear); Urine Color Colorless (Yellow); Urine Culture Reflex Order NOT NEEDED; Urine Glucose NEGATIVE (Negative); Urine Ketones NEGATIVE (Negative); Urine Microscopic Reflex YN ORDER UMIC; Urine Nitrite NEGATIVE (Negative); Urine Protein 1+ (Negative); Urine RBC <5 /HPF (None Seen); Urine Urobilinogen Normal (Normal); Urine WBC <5 /HPF (<5); Urine pH 5.5 (5.0-7.0)
[2024-06-06 08:23] LABS: Absolute Eosinophils 0.1 K/uL (0-0.5); Absolute Monocytes 0.3 K/uL (0.1-1.3); Absolute Neutrophil 3.5 K/uL (1.8-8.0); Basophils % 0.3 % (0-1.3); Eosinophils % 1.1 % (0-4.4); Hematocrit 40.9 % (39.6-49.0); Lymphocytes % 20.1 % (15.3-44.8); MCH 31.9 pg (27.0-35.0); MCHC 34.2 g/dL (32.0-36.0); MCV 93.3 fL (80-100); MPV 7.6 fL (7.6-11.3); Monocytes % 7.1 % (3.3-12.3); Neutrophils % 71.4 % (41.7-73.7); Nucleated Red Blood Cells % 0.1 % (0-0); Platelets 173 thou/uL (152-406); RBC Red Blood Cell Count 4.39 M/uL (4.33-5.43); Red Cell Distribution Width 13.8 % (12.1-15.2)
[2024-06-06 08:26] LABS: PT Prothrombin Time 28.5 SECONDS (9.4-12.5); Protime INR 2.62
[2024-06-06 08:40] LABS: Albumin 3.6 g/dL (3.4-5.0); Albumin/Globulin Ratio 1.1 (1.1-1.8); Anion Gap 6.3 mEq/L (5.0-15.0); Bilirubin Total 1.2 mg/dL (0.2-1.0); Globulin 3.2 g/dL (2.3-3.5); Potassium 4.3 mEq/L (3.5-5.1); Protein, Total 6.8 g/dL (6.4-8.2)
--- NOTE | 2024-06-06 09:24 | RAD REPORT ---
EXAMINATION: CT ABDOMEN AND PELVIS WITH CONTRAST CLINICAL INDICATION: Abd pain;Flank pain TECHNIQUE: CT abdomen and pelvis was performed, after the administration of IV contrast, as per [facility] protocol. Axial, sagittal and coronal reconstructions were obtained. One or more of the following dose reduction techniques were used: Automated exposure control, adjustment of the mA and k V according to patient size, and iterative reconstruction. Unless otherwise specified, incidental findings do not require dedicated imaging follow-up. COMPARISON: 11/11/2011 FINDINGS: LOWER CHEST: The visualized lung bases are clear. LIVER: Mild fatty liver is present. No focal lesion or biliary dilatation is seen. Small benign cyst s present in the liver parenchyma. Grossly unremarkable gallbladder. SPLEEN: Normal size. No focal lesion. PANCREAS: No mass, ductal dilation, or romeo-pancreatic fluid. ADRENALS: Normal; no mass. KIDNEYS: Multiple stones are present in the calyces of both kidneys. The largest on the right inferio r measuring 10 mm in the largest posteriorly on the left measuring 10 mm. 4 mm stone is present proximal left ureter resulting in mild left hydronephrosis. GASTROINTESTINAL TRACT: No evidence of free air, significant intra-abdominal free fluid, bowel obstru ction or abscess. Prominent sigmoid diverticulosis coli with moderate stool retention throughout the colon. APPENDIX: Appendix not visualized, but no inflammatory changes in region of appendix. LYMPH NODES: No lymphadenopathy. MUSCULOSKELETAL: No acute or suspicious osseous abnormality. ADDITIONAL FINDINGS: None. IMPRESSION: 4 mm stone proximal left ureter resulting in mild left hydronephrosis. Additional bilateral calyceal stones are present.
--- NOTE | 2024-06-06 09:53 | EDPHYS ---
Physician Documentation [facility] Name: Devan Mclaughlin Age: 69 yrs Sex: Male : 1955 Arrival Date: 06/06/2024 Time: 07:21 Bed 7 Private MD: ED Physician Leobardo Littlejohn HPI: 06/06 09:46 This 69 yrs old Male presents to ER via Ambulatory with complaints of Urinary rich Problem. 09:46 The patient complains of pain in the left mid back and right mid back. The pain does rich not radiate. Modifying factors: The symptoms are alleviated by nothing. the symptoms are aggravated by nothing. The patient presents with urinary symptoms, hematuria. Modifying factors: The symptoms are alleviated by nothing, the symptoms are aggravated by nothing. Associated signs and symptoms: Pertinent positives: hematuria. Severity of symptoms: At their worst the symptoms were mild, in the emergency department the symptoms are unchanged. Historical: - Allergies: 07:42 Dilaudid; hb - Home Meds: 07:42 Xarelto oral [Active]; hb - PMHx: 07:42 Atrial fibrillation; hb 08:37 Low Heart Rate; aa5 - PSHx: 07:42 Lithotripsy; hb - Immunization history:: Adult Immunizations up to date. - Infectious Disease History:: Denies. - Social history:: Smoking status: Patient denies any tobacco usage or history of. - Family history:: not pertinent. ROS: 09:46 Constitutional: Negative for fever, chills, and weight loss, Eyes: Negative for injury, rich pain, redness, and discharge, ENT: Negative for injury, pain, and discharge, Neck: Negative for injury, pain, and swelling, Cardiovascular: Negative for chest pain, palpitations, and edema, Respiratory: Negative for shortness of breath, cough, wheezing, and pleuritic chest pain, Abdomen/GI: Negative for abdominal pain, nausea, vomiting, diarrhea, and constipation, Back: Negative for injury and pain, MS/Extremity: Negative for injury and deformity, Skin: Negative for injury, rash, and discoloration, Neuro: Negative for headache, weakness, numbness, tingling, and seizure, Psych: Negative for depression, anxiety, suicide ideation, homicidal ideation, and hallucinations, Allergy/Immunology: Negative for hives, rash, and allergies, Endocrine: Negative for neck swelling, polydipsia, polyuria, polyphagia, and marked weight changes, Hematologic/Lymphatic: Negative for swollen nodes, abnormal bleeding, and unusual bruising, :46 : Positive for flank pain, hematuria, Exam: :46 Constitutional: This is a well developed, well nourished patient who is awake, alert, rich and in no acute distress. Head/Face: Normocephalic, atraumatic. Eyes: Pupils equal round and reactive to light, extra-ocular motions intact. Lids and lashes normal. Conjunctiva and sclera are non-icteric and not injected. Cornea within normal limits. Periorbital areas with no swelling, redness, or edema. ENT: Nares patent. No nasal discharge, no septal abnormalities noted. Tympanic membranes are normal and external auditory canals are clear. Oropharynx with no redness, swelling, or masses, exudates, or evidence of obstruction, uvula midline. Mucous membranes moist. Neck: Trachea midline, no thyromegaly or masses palpated, and no cervical lymphadenopathy. Supple, full range of motion without nuchal rigidity, or vertebral point tenderness. No Meningismus. Chest/axilla: Normal chest wall appearance and motion. Nontender with no deformity. No lesions are appreciated. Cardiovascular: Regular rate and rhythm with a normal S1 and S2. No gallops, murmurs, or rubs. Normal PMI, no JVD. No pulse deficits. Respiratory: Lungs have equal breath sounds bilaterally, clear to auscultation and percussion. No rales, rhonchi or wheezes noted. No increased work of breathing, no retractions or nasal flaring. Abdomen/GI: Soft, non-tender, with normal bowel sounds. No distension or tympany. No guarding or rebound. No evidence of tenderness throughout. Back: No spinal tenderness. No costovertebral tenderness. Full range of motion. Male : Normal genitalia with no discharge or lesions. Skin: Warm, dry with normal turgor. Normal color with no rashes, no lesions, and no evidence of cellulitis. MS/ Extremity: Pulses equal, no cyanosis. Neurovascular intact. Full, normal range of motion. Neuro: Awake and alert, GCS 15, oriented to person, place, time, and situation. Cranial nerves II-XII grossly intact. Motor strength 5/5 in all extremities. Sensory grossly intact. Cerebellar exam normal. Normal gait. Psych: Awake, alert, with orientation to person, place and time. Behavior, mood, and affect are within normal limits. Vital Signs: 07:30 BP 145 / 108; Pulse 88; Resp 16; Temp 98.4(O); Pulse Ox 100% on R/A; Weight 81.65 kg; hb Height 6 ft. 2 in. ; Pain 0/10; 08:37 BP 105 / 65; Pulse 55; Resp 16 S; Pulse Ox 98% on R/A; aa5 10:15 BP 129 / 73; Pulse 64; Resp 18 S; Pulse Ox 99% on R/A; aa5 07:30 Body Mass Index 23.11 (81.65 kg, 187.96 cm) hb 07:30 Pain Scale: Adult hb MDM: 07:28 Medical Screening Exam initiated rich 09:48 Differential diagnosis: nephrolithiasis, pyelonephritis, UTI, nonspecific abdominal rich pain. Data reviewed: vital signs, nurses notes, lab test result(s), radiologic studies, CT scan. Consideration of Admission/Observation Escalation of care including admission/observation considered. I considered the following discharge prescriptions or medication management in the emergency department Medications were administered in the Emergency Department. See MAR. Independent interpretation of the following test(s) in the Emergency Department CT Scan: My interpretation is ct ab/pel with iv. Test considered but Not performed: Ultrasound no renal us. Care significantly affected by the following chronic conditions: a fib , xarelto, kidney stones. 06/06 07:53 Order name: CBC with Diff; Complete Time: 08:58 [facility] 06/06 07:53 Order name: Comprehensive Metabolic Panel; Complete Time: 08:58 [facility] 06/06 07:53 Order name: PT-INR; Complete Time: 08:58 [facility] 06/06 07:53 Order name: Urinalysis w/ reflexes; Complete Time: 08:58 [facility] 06/06 07:53 Order name: Urine Culture [facility] 06/06 07:53 Order name: CT Abd/Pelvis - IV Contrast Only; Complete Time: 09:36 rich Administered Medications: 08:25 Drug: NS 0.9% IV 1000 ml IV at 1 bolus Per protocol; to be given as a bolus over 60 aa5 minutes Route: IV; Rate: 1 bolus; Site: right antecubital; 09:30 Follow up: IV Status: Completed infusion; IV Intake: 1000ml aa5 08:25 Drug: Rocephin IV 1 grams IV at per protocol once; Given slow IV push per pharmacy aa5 instructions Route: IV; Rate: per protocol; Site: right antecubital; 08:30 Follow up: Response: No adverse reaction; IV Status: Completed infusion aa5 08:25 Drug: Flomax PO 0.4 mg PO once Route: PO; aa5 09:30 Follow up: Response: No adverse reaction aa5 10:28 Drug: Cefdinir PO 300 mg PO once Route: PO; aa5 : Follow up: Response: No adverse reaction; Medication administered at discharge. 5 10: Follow up: Response: Medication administered at discharge. 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 see dr rich morrison on sunday Followup: rich - With: Private Physician - When: 2 - 3 days - Reason: Recheck today's complaints, Continuance of care, Re-evaluation by your physician Followup: rich - With: Mark Blackman MD - When: 2 - 3 days - Reason: Recheck today's complaints, Continuance of care, Re-evaluation by your physician Followup: rich - With: Hannah Castillo MD - When: 2 - 3 days - Reason: Recheck today's complaints, Re-evaluation by your physician Followup: rich - With: Modesto Morrison MD - When: 2 - 3 days - Reason: Recheck today's complaints, Continuance of care, Re-evaluation by your physician Discharge Instructions: - Discharge Summary Sheet rich - Atrial Fibrillation rich - Hematuria, Adult rich - Kidney Stones rich - Kidney Stones, [id number] rich - Hydronephrosis rich - Dietary Guidelines to Help Prevent Kidney Stones rich - Atrial Fibrillation, [id number] rich Forms: - Medication Reconciliation Form rich - Antibiotic Education rich - Prescription Opioid Use rich - Patient Portal Instructions rich - Leadership Thank You Letter [facility] Prescriptions: - Flomax 0.4 mg Oral capsule - take 1 capsule ORAL route once; 30 capsule; Refills: 0, Product Selection rich Permitted - cefdinir 300 mg Oral capsule - take 1 capsule ORAL route 2 times per day; 14 capsule; Refills: 0, Product rich Selection Permitted - acetaminophen-codeine 300-30 mg Oral tablet - take 2 tablet ORAL route every 6 hours as needed for pain; 20 tablet; Refills: rich 0, Product Selection Permitted - ondansetron 4 mg Oral Tablet,disintegrating - take 1 tablet ORAL route every 8-12 hours for 5 days; 20 tablet; Refills: 0, rich Product Selection Permitted Signatures: Dispatcher [employer] EDMS Leobardo Littlejohn MD MD cha Calderon, Audri, RN RN aa5 Isabel Wu RN RN hb Corrections: (The following items were deleted from the chart) 07:54 07:54 Abdomen Pelvis W Con+CT.RAD.BRZ ordered. EDCT EDMS
--- NOTE | 2024-06-06 09:53 | ER ---
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 see dr morrison on sunday Presentation: 06/06 07:30 Chief complaint: Blood in urine since yesterday. Coronavirus screen: At this time, the client does not indicate any symptoms associated with coronavirus-19. Ebola Screen: No symptoms or risks identified at this time. Initial Sepsis Screen: Does the patient meet any 2 criteria? No. Patient's initial sepsis screen is negative. Does the patient have a suspected source of infection? No. Patient's initial sepsis screen is negative. Risk Assessment: Do you want to hurt yourself or someone else? Patient reports no desire to harm self or others. Onset of symptoms was June 05, 2024. 07:30 Method Of Arrival: Ambulatory 07:30 Acuity: RICHARD 3 hb Triage Assessment: 07:42 General: Appears in no apparent distress. Behavior is calm, cooperative. Pain: Denies hb pain. EENT: No signs and/or symptoms were reported regarding the EENT system. Neuro: Level of Consciousness is awake, alert, obeys commands, Oriented to person, place, time, situation. Cardiovascular: Patient's skin is warm and dry. Respiratory: Respiratory effort is even, unlabored, Respiratory pattern is regular, symmetrical. GI: No signs and/or symptoms were reported involving the gastrointestinal system. : Reports blood in urine. Derm: Skin is pink, warm \T\ dry. Musculoskeletal: No signs and/or symptoms reported regarding the musculoskeletal system. Historical: - Allergies: 07:42 Dilaudid; hb - Home Meds: 07:42 Xarelto oral [Active]; hb - PMHx: 07:42 Atrial fibrillation; hb 08:37 Low Heart Rate; aa5 - PSHx: 07:42 Lithotripsy; hb - Immunization history:: Adult Immunizations up to date. - Infectious Disease History:: Denies. - Social history:: Smoking status: Patient denies any tobacco usage or history of. - Family history:: not pertinent. Screenin:43 [facility] ED Fall Risk Assessment (Adult) History of falling in the last 3 months, hb including since admission No falls in past 3 months (0 pts) Confusion or Disorientation No (0 pts) Intoxicated or Sedated No (0 pts) Impaired Gait No (0 pts) Mobility Assist Device Used No (0 pt) Altered Elimination No (0 pt) Score/Fall Risk Level 0 - 2 = Low Risk Oriented to surroundings, Maintained a safe environment, Educated pt \T\ family on fall prevention, incl call for assistance when getting out of bed. Abuse screen: Denies threats or abuse. Denies injuries from another. Nutritional screening: No deficits noted. Tuberculosis screening: No symptoms or risk factors identified. Assessment: 07:30 General: Appears comfortable, Behavior is calm, cooperative. Pain: Denies pain. Neuro: aa5 Level of Consciousness is awake, alert, obeys commands, Oriented to person, place, time, situation. Cardiovascular: Patient's skin is warm and dry. Respiratory: Airway is patent Respiratory effort is even, unlabored, Respiratory pattern is regular, symmetrical. GI: No signs and/or symptoms were reported involving the gastrointestinal system. : Reports blood in urine since yesterday Denies burning with urination, inability to void. EENT: No signs and/or symptoms were reported regarding the EENT system. Derm: Skin is pink, warm \T\ dry. Musculoskeletal: Range of motion: intact in all extremities. 08:25 Reassessment: Patient is alert, oriented x 3, equal unlabored respirations, skin aa5 warm/dry/pink. Warm blankets provided for comfort. . 08:37 Reassessment: Patient is alert, oriented x 3, equal unlabored respirations, skin aa5 warm/dry/pink. 10:15 Reassessment: Patient is alert, oriented x 3, equal unlabored respirations, skin aa5 warm/dry/pink. Vital Signs: 07:30 BP 145 / 108; Pulse 88; Resp 16; Temp 98.4(O); Pulse Ox 100% on R/A; Weight 81.65 kg; hb Height 6 ft. 2 in. ; Pain 0/10; 08:37 BP 105 / 65; Pulse 55; Resp 16 S; Pulse Ox 98% on R/A; aa5 10:15 BP 129 / 73; Pulse 64; Resp 18 S; Pulse Ox 99% on R/A; aa5 07:30 Body Mass Index 23.11 (81.65 kg, 187.96 cm) hb 07:30 Pain Scale: Adult hb ED Course: 07:23 Patient arrived in ED. mr 07:27 Leobardo Littlejohn MD is Attending Physician. rich 07:42 Triage completed. hb 07:42 Arm band placed on. hb 07:43 Patient has correct armband on for positive identification. Provided Education on: use hb of call light . 07:55 Patrizia Hu, RN is Primary Nurse. aa5 08:15 Initial lab(s) drawn, by me, sent to lab. Inserted saline lock: 20 gauge in right aa5 antecubital area, using aseptic technique. Blood collected. Flushed with 10 mL NS. 09:09 CT Abd/Pelvis - IV Contrast Only In Process Unspecified. EDMS 09:50 Mark Blackman MD is Referral Physician. rich 09:50 Hannah Castillo MD is Referral Physician. rich 09:53 Modesto Morrison MD is Referral Physician. rich 10:00 No provider procedures requiring assistance completed. IV discontinued, intact, aa5 bleeding controlled, No redness/swelling at site. Pressure dressing applied. Administered Medications: 08:25 Drug: NS 0.9% IV 1000 ml IV at 1 bolus Per protocol; to be given as a bolus over 60 aa5 minutes Route: IV; Rate: 1 bolus; Site: right antecubital; 09:30 Follow up: IV Status: Completed infusion; IV Intake: 1000ml aa5 08:25 Drug: Rocephin IV 1 grams IV at per protocol once; Given slow IV push per pharmacy aa5 instructions Route: IV; Rate: per protocol; Site: right antecubital; 08:30 Follow up: Response: No adverse reaction; IV Status: Completed infusion aa5 08:25 Drug: Flomax PO 0.4 mg PO once Route: PO; aa5 09:30 Follow up: Response: No adverse reaction aa5 10:28 Drug: Cefdinir PO 300 mg PO once Route: PO; aa5 10:28 Follow up: Response: No adverse reaction; Medication administered at discharge. aa5 10:28 Follow up: Response: Medication administered at discharge. aa5 Medication: 07:43 VIS not applicable for this client. hb Intake: 09:30 IV: 1000ml; Total: 1000ml. aa5 Outcome: 09:53 Discharge ordered by . rich 10:15 Discharged to home ambulatory, with family, aa5 10:15 Condition: stable 10:15 Discharge instructions given to patient, Instructed on discharge instructions, follow up and referral plans. medication usage, Demonstrated understanding of instructions, follow-up care, medications, Prescriptions given X 4, 10:29 Patient left the ED. aa5 Signatures: Dispatcher [employer] EDWI Leobardo Littlejohn MD MD cha Rivera, Mary, Reg Reg mr Patrizia Hu, RN RN aa5 Isabel Wu, JASON RN Corrections: (The following items were deleted from the chart) 08:41 07:43 General: See triage assessment . aa5 11:47 10:00 IV discontinued, aa5 aa5
[2024-06-06] MEDS ORDERED: CEFDINIR 300 MG CAP PO ONE (10:20)
[2024-06-06 11:02] VITALS: TEMP 98.4
[2024-06-06 11:08] VITALS: BP 105/65; O2SAT 98
== END 2024-06-06 10:29 | disposition home or self-care (01) ==
LOC: ER 07:21
DX: N13.2 Hydronephrosis with renal and ureteral calculous obstruction (principal); Z79.01 Long term (current) use of anticoagulants
CPT/HCPCS: 96361; 87088; 85025; 81001; 87086; 36415; 85610; 80053; 74177; 96374; 99284; Q9967; J7030; J0696

== ENCOUNTER 2024-11-16 09:08 | Emergency (ER) | payer OTHER ==
--- OUTSIDE RECORDS SUMMARY | 2024-11-16 09:15 | XMS REPORT | Continuity of Care Document ---
Author Name Unknown Address [address] [facility] [address] [place] [address] [facility] Address [address] [facility] [address] [facility] [place] [address] Care Team Providers Care Digital Publishing Specialist Name Role Phone Pcp, Patient Does Not Have A Primary Care Physic bradley Doctor Unassigned, [place] Attending Clinician [facility], Adc Fam Pob I Attending Clinician Unavailab Katherine Osborne Attending Clinician KATHERINE ALEXANDER Attending Clinician Unavailable Payers Payer Name Policy Type Policy Number Effective Date Expirati on Date Source Allergies, Adverse Reactions, Alerts Allergy Name Allergy Type Status Severity Reaction(s) Onset Date Inactive Date Treating Clinician Comments Source NO KNOWN ALLERGIE S Drug Class Active [facility] Social History Social Habit Start Date Stop Date Quantity Comments Source Sexual orientation U [facility] Sex Assigned At 1955 00:00:00 1955 00:00:00 [facility] Smoking Status Start Date Stop Date Source Tobacco smoking consumption unknown [facility] Encounters Start Date/Time End Date/Time Encounter Type Admission Type Attending Clinicians Care Facility Care Department Encounter ID Source 2020-03-04 00:00:00 2020-03-04 00:00:00 Patient Secure Msg Doctor Unassigned, [place] [facility] [id number] [facility] 2020-03-02 13:53:26 2020-03-02 14:13:26 Laboratory Only Lab, Adc Fam Pob I [facility] [id number] 2020-03-02 13:53:26 2020-03-02 14:13:26 Laboratory Only Lab, Adc Fam Pob I Katherine Alexander [facility] [id number] [id number] [facility] 2020-03-02 14:00:00 2020-03-02 14:00:00 Outpatient KATHERINE LEAL [facility] [id number] [facility] 2020-03-02 00:00:00 2020-03-02 00:00:00 Letter (Out) Doctor Unassigned, [place] [facility] [id number] 2020-03-02 00:00:00 2020-03-02 00:00:00 Letter (Out) Doctor Unassigned, [place] [facility] [id number] [facility]
[2024-11-16] MEDS ORDERED: MORPHINE 4 MG/ML SYR ONE (09:48)
[2024-11-16] MEDS ORDERED: TAMSULOSIN 0.4 MG SR CAP ONE (09:48)
[2024-11-16] MEDS ORDERED: ONDANSETRON 4 MG/2 ML VIAL ONE (09:48)
[2024-11-16] MEDS ORDERED: MAGNESIUM SULFATE 1 gm IVPB 1 GM/100 ML BAG IV ONE (09:49)
[2024-11-16 09:55] LABS: Absolute Lymphocytes (CBC) 0.9 K/uL (0.7-4.9); Absolute Monocytes 0.3 K/uL (0.1-1.3); Absolute Neutrophil 5.3 K/uL (1.8-8.0); Basophils % 0.1 % (0-1.3); Eosinophils % 0.6 % (0-4.4); Hematocrit 39.7 % (39.6-49.0); Hemoglobin 13.6 g/dL (13.6-17.9); Lymphocytes % 14.1 % (15.3-44.8); MCH 31.4 pg (27.0-35.0); MCHC 34.3 g/dL (32.0-36.0); MCV 91.4 fL (80-100); MPV 7.7 fL (7.6-11.3); Monocytes % 4.5 % (3.3-12.3); Neutrophils % 80.7 % (41.7-73.7); Platelets 200 thou/uL (152-406); RBC Red Blood Cell Count 4.35 M/uL (4.33-5.43); Red Cell Distribution Width 13.7 % (12.1-15.2)
[2024-11-16 10:14] LABS: Albumin 3.7 g/dL (3.4-5.0); Albumin/Globulin Ratio 1.1 (1.1-1.8); Bilirubin Total 1.9 mg/dL (0.2-1.0); Globulin 3.5 g/dL (2.3-3.5); Protein, Total 7.2 g/dL (6.4-8.2)
--- NOTE | 2024-11-16 10:24 | RAD REPORT ---
EXAMINATION: Stone Protocol CLINICAL INDICATION: Male, 69 years old.FLANK PAIN TECHNIQUE: CT abdomen and pelvis was performed as a stone protocol, without IV contrast, as per depar tment protocol. Axial, sagittal and coronal reconstructions were obtained. One or more of the following dose reduction techniques were used: Automated exposure control, adjustment of the mA and/o r kV according to the patient size, and/or iterative reconstruction. Unless otherwise specified, incidental findings do not require dedicated imaging follow-up. [id number]. IV CONTRAST: Not administered. COMPARISON: 06/06/2024 FINDINGS: The lack of intravenous contrast limits the sensitivity of this exam for evaluation of solid visceral organs, vascular structures, and retroperitoneum. LOWER CHEST: No acute process identified.Mild cardiomegaly. Mild circumferential thickening of the di stal esophagus which could reflect esophagitis. UPPER GI: No significant abnormality. LIVER: Benign appearing low density liver lesions. No suspicious mass. GALLBLADDER/BILE DUCTS: No biliary ductal dilatation.? PANCREAS: No mass, ductal dilation, or romeo-pancreatic fluid. SPLEEN: Unremarkable. ADRENALS: No adrenal masses. KIDNEYS AND URETERS: Moderate left-sided hydroureteronephrosis secondary to a 5mm stone near the left UVJ.Low density and/or too small to characterize renal lesions which are statistically benign.Bilateral renal calculi. The largest on the right measures 11 mm. The largest on the left hayley ures 10 mm ABDOMINAL AORTA AND OTHER VESSELS: Normal caliber aorta and IVC. PERITONEUM: No abnormal free fluid. No free air. LYMPH NODES: No pathologic lymphadenopathy. ABDOMINAL WALL: Unremarkable SMALL BOWEL/COLON: Small bowel has normal course and caliber. No colonic wall thickening or pericolon ic inflammatory changes.Normal appendix. Moderate diverticulosis without diverticulitis. URINARY BLADDER: Underdistended but grossly unremarkable. REPRODUCTIVE ORGANS: No pathologic process. MUSCULOSKELETAL: No acute or suspicious osseous abnormality. ADDITIONAL FINDINGS: None. IMPRESSION: Moderate left-sided hydroureteronephrosis secondary to a 5 mm stone near the left UVJ
[2024-11-16] MEDS ORDERED: NA CHLORIDE 0.9% 250 ML ONE (11:35)
--- NOTE | 2024-11-16 12:24 | ER ---
Nurse's Notes [facility] Name: Devan Mclaughlin Age: 69 yrs Sex: Male : 1955 Arrival Date: 11/16/2024 Time: 09:08 Bed 8 Private MD: Diagnosis: Calculus of ureter Presentation: 11/16 09:37 Chief complaint: Severe left flank pain upon waking today. Coronavirus screen: At this hb time, the client does not indicate any symptoms associated with coronavirus-19. Ebola Screen: No symptoms or risks identified at this time. Initial Sepsis Screen: Does the patient meet any 2 criteria? No. Patient's initial sepsis screen is negative. Does the patient have a suspected source of infection? No. Patient's initial sepsis screen is negative. Risk Assessment: Do you want to hurt yourself or someone else? Patient reports no desire to harm self or others. Onset of symptoms was November 16, 2024. 09:37 Method Of Arrival: Ambulatory 09:37 Acuity: RICHARD 3 hb Triage Assessment: 09:51 General: Appears in no apparent distress. uncomfortable, Behavior is cooperative, hb restless. Pain: Pain currently is 10 out of 10 on a pain scale. EENT: No signs and/or symptoms were reported regarding the EENT system. Neuro: Level of Consciousness is awake, alert, obeys commands, Oriented to person, place, time, situation. Cardiovascular: Patient's skin is warm and dry. Respiratory: Respiratory effort is even, unlabored, Respiratory pattern is regular, symmetrical. GI: No signs and/or symptoms were reported involving the gastrointestinal system. : No signs and/or symptoms were reported regarding the genitourinary system. Derm: Skin is pink, warm \\T\\ dry. Musculoskeletal: Reports left flank pain. Historical: - Allergies: 09:51 Dilaudid; hb - Home Meds: 09:51 Xarelto oral [Active]; hb - PMHx: 09:51 Atrial fibrillation; low heart rate; hb - PSHx: 09:51 Lithotripsy; hb - Immunization history:: Adult Immunizations up to date. - Infectious Disease History:: Denies. - Family history:: not pertinent. - Social history:: Smoking status: Patient denies any tobacco usage or history of. - Hospitalizations: : No recent hospitalization is reported. Screenin:53 [facility] ED Fall Risk Assessment (Adult) History of falling in the last 3 months, hb including since admission No falls in past 3 months (0 pts) Confusion or Disorientation No (0 pts) Intoxicated or Sedated No (0 pts) Impaired Gait No (0 pts) Mobility Assist Device Used No (0 pt) Altered Elimination No (0 pt) Score/Fall Risk Level 0 - 2 = Low Risk Oriented to surroundings, Maintained a safe environment, Educated pt \\T\\ family on fall prevention, incl call for assistance when getting out of bed. Abuse screen: Denies threats or abuse. Denies injuries from another. Nutritional screening: No deficits noted. Tuberculosis screening: No symptoms or risk factors identified. Assessment: 09:55 General: Appears uncomfortable, Behavior is calm, cooperative. Pain: Complains of pain aa5 in left low back and left mid back Pain currently is 10 out of 10 on a pain scale. Quality of pain is described as sharp, Pain began 2-3 days ago. Pt reports pain got worse today around 0100. Is continuous. Neuro: Level of Consciousness is awake, alert, obeys commands, Oriented to person, place, time, situation. Cardiovascular: Patient's skin is warm and dry. Respiratory: Airway is patent Respiratory effort is even, unlabored, Respiratory pattern is regular, symmetrical. GI: Abdomen is round non-distended, Bowel sounds present X 4 quads. Abd is soft and non tender X 4 quads. Reports nausea. : No signs and/or symptoms were reported regarding the genitourinary system. EENT: No signs and/or symptoms were reported regarding the EENT system. Derm: Skin is pink, warm \\T\\ dry. Musculoskeletal: Range of motion: intact in all extremities. 10:41 Reassessment: Patient appears in no apparent distress at this time. Patient is alert, cm10 oriented x 3, equal unlabored respirations, skin warm/dry/pink. Patient states feeling better. Patient states symptoms have improved. 11:20 Reassessment: Patient is alert, oriented x 3, equal unlabored respirations, skin aa5 warm/dry/pink. Patient states feeling better. Pt reports he is not able to void at this time, pt states "it is actually unusual for me", MD was notified. . 12:20 Reassessment: Patient is alert, oriented x 3, equal unlabored respirations, skin aa5 warm/dry/pink. MD at bedside. . 12:45 Reassessment: Patient is alert, oriented x 3, equal unlabored respirations, skin aa5 warm/dry/pink. Patient states feeling better. Patient states symptoms have improved. Vital Signs: 09:37 Pain 10/10; hb 09:37 BP 108 / 63; Pulse 78; Resp 16 S; Temp 97.9(O); Pulse Ox 97% on R/A; Weight 81.19 kg aa5 (R); Height 6 ft. 2 in. (R); 10:30 BP 118 / 65; Pulse 48; Resp 15; Pulse Ox 96% on R/A; cm10 11:20 BP 123 / 64; Pulse 55; Resp 14 S; Pulse Ox 99% on R/A; Pain 1/10; aa5 12:20 BP 126 / 60; Pulse 60; Resp 16 S; Pulse Ox 100% on R/A; aa5 09:37 Body Mass Index 22.98 (81.19 kg, 187.96 cm) aa5 09:37 Pain Scale: Adult hb 11:20 Pain Scale: Adult aa5 ED Course: 09:11 Patient arrived in ED. ts1 09:14 Keaton Terry MD is Attending Physician. rn 09:44 Patrizia Hu, JASON is Primary Nurse. aa5 09:47 Initial lab(s) drawn, by me, sent to lab. Inserted saline lock: 20 gauge in right hb antecubital area, using aseptic technique. Blood collected. Flushed with 10 mL NS. 09:51 Triage completed. hb 09:51 Arm band placed on. hb 09:53 Patient has correct armband on for positive identification. Bed in low position. Call hb light in reach. Provided Education on: tests, result times, medications. 10:04 CT Stone Protocol In Process Unspecified. EDMS 10:50 No provider procedures requiring assistance completed. aa5 12:45 IV discontinued, intact, bleeding controlled, No redness/swelling at site. Pressure aa5 dressing applied. Administered Medications: 09:55 Drug: morphine IVP or IV 4 mg IVP once over 4 mins Route: IVP; Infused Over: 4 mins; aa5 Site: right antecubital; 10:27 Follow up: Response: No adverse reaction cm10 09:55 Drug: Ondansetron IVP 4 mg IVP once; over 2 minutes Route: IVP; Site: right antecubital;aa5 10:27 Follow up: Response: No adverse reaction cm10 10:23 Not Given (pt reports he took this morning, aware.): flomax0.4 mg PO once aa5 10:27 Drug: Magnesium Sulfate IVPB 1 grams IVPB once over 1 hrs Route: IVPB; Infused Over: 1 cm10 hrs; Site: right antecubital; 11:27 Follow up: IV Status: Completed infusion aa5 11:38 Drug: NS 0.9% IV 250 ml IV at bolus once; to be given as a bolus over 30 minutes Route: aa5 IV; Rate: bolus; Site: right antecubital; 12:08 Follow up: IV Status: Completed infusion; IV Intake: 250ml aa5 Medication: 09:53 VIS not applicable for this client. hb Intake: 12:08 IV: 250ml; Total: 250ml. aa5 Outcome: 12:23 Discharge ordered by rn 12:45 Discharged to home ambulatory, with family, aa5 12:45 Condition: improved 12:45 Discharge instructions given to patient, Instructed on discharge instructions, follow up and referral plans. medication usage, Demonstrated understanding of instructions, follow-up care, medications, Prescriptions given X 4, 12:46 Patient left the ED. aa5 Signatures: Dispatcher [employer] EDMS Keaton Terry MD MD rn Calderon, Audri, RN RN aa5 Isabel Wu RN RN Kirsten Moser PAS PAS ts1 Mary Griffiths RN RN cm10 Corrections: (The following items were deleted from the chart) 10:50 09:53 General: See triage assessment. hb aa5
--- NOTE | 2024-11-16 12:24 | EDPHYS ---
Physician Documentation [facility] Name: Devan Mclaughlin Age: 69 yrs Sex: Male : 1955 Arrival Date: 11/16/2024 Time: 09:08 Bed 8 Private MD: ED Physician Keaton Terry HPI: 11/16 09:44 This 69 yrs old Male presents to ER via Unassigned with complaints of Possible Kidney rn Stone. 09:44 The patient complains of pain in the left mid back. The pain radiates to the abdomen. rn Onset: The symptoms/episode began/occurred 2 day(s) ago. Modifying factors: The symptoms are alleviated by nothing. the symptoms are aggravated by nothing. Severity of pain: At its worst the pain was moderate in the emergency department the pain is unchanged. The patient has experienced similar episodes in the past. The patient has not recently seen a physician. Patient reports left-sided flank pain, identical to previous kidney stones. Started 2 days ago with hematuria, takes Xarelto, has happened multiple times in the past and feels identical. Some radiation to left lower quadrant. No fever or chills.. Historical: - Allergies: 09:51 Dilaudid; hb - Home Meds: 09:51 Xarelto oral [Active]; hb - PMHx: 09:51 Atrial fibrillation; low heart rate; hb - PSHx: 09:51 Lithotripsy; hb - Immunization history:: Adult Immunizations up to date. - Infectious Disease History:: Denies. - Family history:: not pertinent. - Social history:: Smoking status: Patient denies any tobacco usage or history of. - Hospitalizations: : No recent hospitalization is reported. ROS: 09:44 Constitutional: Negative for fever, chills, and weight loss, Cardiovascular: Negative rn for chest pain, palpitations, and edema, Respiratory: Negative for shortness of breath, cough, wheezing, and pleuritic chest pain, Abdomen/GI: Positive for nausea Back: Positive for left flank pain Exam: 09:44 Constitutional: This is a well developed, well nourished patient who is awake, alert, rn appears uncomfortable Cardiovascular: Regular rate and rhythm. No pulse deficits. Respiratory: No increased work of breathing, no retractions or nasal flaring. Abdomen/GI: Soft, non-tender Vital Signs: 09:37 Pain 10/10; hb 09:37 BP 108 / 63; Pulse 78; Resp 16 S; Temp 97.9(O); Pulse Ox 97% on R/A; Weight 81.19 kg aa5 (R); Height 6 ft. 2 in. (R); 10:30 BP 118 / 65; Pulse 48; Resp 15; Pulse Ox 96% on R/A; cm10 11:20 BP 123 / 64; Pulse 55; Resp 14 S; Pulse Ox 99% on R/A; Pain 1/10; aa5 12:20 BP 126 / 60; Pulse 60; Resp 16 S; Pulse Ox 100% on R/A; aa5 09:37 Body Mass Index 22.98 (81.19 kg, 187.96 cm) aa5 09:37 Pain Scale: Adult hb 11:20 Pain Scale: Adult aa5 MDM: 09:14 Medical Screening Exam initiated rn 10:44 Differential diagnosis: nephrolithiasis, UTI. rn 12:23 Data reviewed: vital signs, nurses notes, lab test result(s), radiologic studies, CT rn scan, and as a result, I will discharge patient. Counseling: I had a detailed discussion with the patient and/or guardian regarding the historical points, exam findings, and any diagnostic results supporting the discharge/admit diagnosis, lab results, radiology results, the need for outpatient follow up, to return to the emergency department if symptoms worsen or persist or if there are any questions or concerns that arise at home. Response to treatment: the patient's symptoms have markedly improved after treatment, and as a result, I will discharge patient. Special discussion: I discussed with the patient/guardian in detail that at this point there is no indication for admission to the hospital. It is understood, however, that if the symptoms persist or worsen the patient needs to return immediately for re-evaluation. Based on the history and exam findings, there is no indication for further emergent testing or inpatient evaluation. I discussed with the patient/guardian the need to see the urologist for further evaluation of the symptoms. ED course: At time of CT there was a 5 mm distal ureteral stone at the UVJ. Patient feels much better. Observed here for 3 and half hours and states is ready to go home. I have personally reviewed all of the results, including but not limited to blood tests and imaging deemed necessary to safely discharge this patient at this time. All results given to and printed out for patient. I personally went over all the results with the patient and answered all questions. Patient will follow-up with PCP and or specialist as discussed. Return precautions given and understood.. 11/16 09:15 Order name: CBC with Diff; Complete Time: 10:25 rn 11/16 09:15 Order name: CMP; Complete Time: 10:25 rn 11/16 09:15 Order name: CT Stone Protocol; Complete Time: 10: rn 11/16 09:15 Order name: IV Saline Lock; Complete Time: :56 rn 11/16 09:15 Order name: Labs collected and sent; Complete Time: :56 rn Administered Medications: 09:55 Drug: morphine IVP or IV 4 mg IVP once over 4 mins Route: IVP; Infused Over: 4 mins; aa5 Site: right antecubital; 10:27 Follow up: Response: No adverse reaction cm10 09:55 Drug: Ondansetron IVP 4 mg IVP once; over 2 minutes Route: IVP; Site: right antecubital;aa5 10:27 Follow up: Response: No adverse reaction cm10 10:23 Not Given (pt reports he took this morning, MD aware.): flomax0.4 mg PO once aa5 10:27 Drug: Magnesium Sulfate IVPB 1 grams IVPB once over 1 hrs Route: IVPB; Infused Over: 1 cm10 hrs; Site: right antecubital; 11:27 Follow up: IV Status: Completed infusion aa5 11:38 Drug: NS 0.9% IV 250 ml IV at bolus once; to be given as a bolus over 30 minutes Route: aa5 IV; Rate: bolus; Site: right antecubital; 12:08 Follow up: IV Status: Completed infusion; IV Intake: 250ml aa5 Disposition Summary: 11/16/24 12:23 Discharge Ordered Notes: Location: Home rn Problem: new rn Symptoms: have improved rn Condition: Stable rn Diagnosis - Calculus of ureter rn Followup: rn - With: Private Physician - When: As needed - Reason: Recheck today's complaints, Re-evaluation by your physician Discharge Instructions: - Discharge Summary Sheet rn - Kidney Stones rn - Renal Colic rn - Dietary Guidelines to Help Prevent Kidney Stones rn Forms: - Medication Reconciliation Form rn - Antibiotic 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 - Prescription Opioid Use rn - Patient Portal Instructions rn - Leadership Thank You Letter rn Prescriptions: - ondansetron 4 mg Oral Tablet,disintegrating - take 1 tablet ORAL route every 8-10 hours As needed; 12 tablet; Refills: 0, rn Product Selection Permitted - Flomax 0.4 mg Oral capsule - take 1 capsule ORAL route every 24 hours As needed; 14 capsule; Refills: 0, rn Product Selection Permitted - Augmentin 875-125 mg Oral Tablet - take 1 tablet ORAL route every 12 hours for 10 days; 20 tablet; Refills: 0, rn Product Selection Permitted - Tramadol 50 mg Oral Tablet - take 1 tablet ORAL route every 8 hours as needed; 12 tablet; Refills: 0, rn Product Selection Permitted Signatures: Dispatcher [employer] EDMS Keaton Terry MD MD rn Calderon, Patrizia RN RN aa5 Isabel Wu RN RN Mary Molina RN RN cm10 Corrections: (The following items were deleted from the chart) 09:16 09:16 CBC+H.LAB.BRZ ordered. EDMS EDMS 09:16 09:16 COMPREHENSIVE METABOLIC PANEL+C.LAB.BRZ ordered. EDMS EDMS 09:16 09:16 Urinalysis+U.LAB.BRZ ordered. EDMS EDMS 09:16 09:16 Stone Protocol+CT.RAD.BRZ ordered. EDMS EDMS
[2024-11-16 13:09] VITALS: TEMP 97.9
[2024-11-16 13:16] VITALS: BP 126/60; O2SAT 100
== END 2024-11-16 12:46 | disposition home or self-care (01) ==
LOC: ER 09:08
DX: N20.1 Calculus of ureter (principal); Z87.442 Personal history of urinary calculi; I48.91 Unspecified atrial fibrillation; Z79.01 Long term (current) use of anticoagulants
CPT/HCPCS: 96365; 85025; 36415; 80053; 76377; 74176; 96375; 99284; J3475; J2405; J7050